=== PATIENT | female | born 1940 | race Caucasian/White ===

== ENCOUNTER → 2016-09-21 | Outpatient (CLI) | payer MEDICARE, BC ==
[~2016-09-21] MED LIST: ALPR0.5T99 PO; DILA4TAB10 PO
[2016-09-21 13:17] LABS: HEMATOCRIT 35.9 % (35.0-46.0); MEAN CELL VOLUME 90.4 FL (80.0-100.0); MEAN CORPUSCULAR HGB CONC 33.2 % (32.0-36.0); PLATELET COUNT 287 TH/MM3 (150-450); RED BLOOD COUNT 3.97 MIL/MM3 (4.00-5.30); RED CELL DISTRIBUTION WIDTH 14.6 % (11.6-17.2); REVIEW FLAG FINAL; WHITE BLOOD COUNT 5.7 TH/MM3 (4.0-11.0)
[2016-09-21 13:52] LABS: ANION GAP 6 MEQ/L (5-15); AST (GOT) 20 U/L (15-37); BICARBONATE 26.1 MEQ/L (21.0-32.0); BLOOD UREA NITROGEN 21 MG/DL (7-18); CHLORIDE 110 MEQ/L (98-107); GLOMERULAR FILTRATION RATE 58 ML/MIN (>89); POTASSIUM 4.6 MEQ/L (3.5-5.1); SODIUM (NA) 142 MEQ/L (136-145)
[2016-09-21 14:10] LABS: ALKALINE PHOSPHATASE 89 U/L (45-117); ALT (GPT) 20 U/L (10-53); FREE T4 1.12 NG/DL (0.76-1.46); GLUCOSE,FASTING 80 MG/DL (74-99); HDL CHOLESTEROL 67.4 MG/DL (40.0-60.0); LDL CHOLESTEROL 119 MG/DL (0-99); LDL CHOLESTEROL DIRECT 116 MG/DL (0-99); TOTAL BILIRUBIN ADULT 0.3 MG/DL (0.2-1.0)
== END ==
LOC: PLAB 08:30
PROVIDERS: ATTEND Internal Medicine
DX: I10 Essential (primary) hypertension (principal); E03.9 Hypothyroidism, unspecified; E78.5 Hyperlipidemia, unspecified
CPT/HCPCS: 36415; 80053; 80061; 83721; 84439; 84443; 85027

== ENCOUNTER → 2017-03-07 | Outpatient (CLI) | payer MEDICARE, BC ==
[2017-03-07 13:32] LABS: ANION GAP 8 MEQ/L (5-15); AST (GOT) 18 U/L (15-37); BICARBONATE 23.7 MEQ/L (21.0-32.0); BLOOD UREA NITROGEN 19 MG/DL (7-18); CHLORIDE 107 MEQ/L (98-107); GLOMERULAR FILTRATION RATE 65 ML/MIN (>89); GLUCOSE,FASTING 88 MG/DL (74-99); POTASSIUM 4.1 MEQ/L (3.5-5.1); SODIUM (NA) 139 MEQ/L (136-145)
[2017-03-07 13:33] LABS: HEMATOCRIT 35.1 % (35.0-46.0); MEAN CELL VOLUME 91.9 FL (80.0-100.0); MEAN CORPUSCULAR HEMOGLOBIN 29.8 PG (27.0-34.0); MEAN CORPUSCULAR HGB CONC 32.4 % (32.0-36.0); PLATELET COUNT 277 TH/MM3 (150-450); RED BLOOD COUNT 3.82 MIL/MM3 (4.00-5.30); RED CELL DISTRIBUTION WIDTH 14.5 % (11.6-17.2); REVIEW FLAG FINAL; WHITE BLOOD COUNT 6.2 TH/MM3 (4.0-11.0)
[2017-03-07 13:37] LABS: ALKALINE PHOSPHATASE 88 U/L (45-117); ALT (GPT) 15 U/L (10-53); HDL CHOLESTEROL 64.6 MG/DL (40.0-60.0); LDL CHOLESTEROL 124 MG/DL (0-99); LDL CHOLESTEROL DIRECT 123 MG/DL (0-99); TOTAL BILIRUBIN ADULT 0.4 MG/DL (0.2-1.0)
== END ==
LOC: PLAB 09:35
PROVIDERS: ATTEND Internal Medicine
DX: I10 Essential (primary) hypertension (principal); E78.5 Hyperlipidemia, unspecified
CPT/HCPCS: 36415; 80053; 80061; 83721; 85027

== ENCOUNTER → 2017-09-13 | Outpatient (CLI) | payer MEDICARE, BC ==
[2017-09-13 13:54] LABS: HEMATOCRIT 33.8 % (35.0-46.0); HEMOGLOBIN 11.1 GM/DL (11.6-15.3); MEAN CELL VOLUME 91.3 FL (80.0-100.0); MEAN CORPUSCULAR HGB CONC 32.9 % (32.0-36.0); MEAN PLATELET VOLUME 7.7 FL (7.0-11.0); PLATELET COUNT 263 TH/MM3 (150-450); RED CELL DISTRIBUTION WIDTH 14.6 % (11.6-17.2); WHITE BLOOD COUNT 5.8 TH/MM3 (4.0-11.0)
[2017-09-13 13:56] LABS: ALBUMIN 3.6 GM/DL (3.4-5.0); AST (GOT) 24 U/L (15-37); BICARBONATE 25.3 MEQ/L (21.0-32.0); BLOOD UREA NITROGEN 21 MG/DL (7-18); CALCIUM 9.4 MG/DL (8.5-10.1); CHLORIDE 106 MEQ/L (98-107); CHOLESTEROL 203 MG/DL (120-200); CREATININE 0.99 MG/DL (0.50-1.00); GLOMERULAR FILTRATION RATE 54 ML/MIN (>89); GLUCOSE,FASTING 79 MG/DL (74-99); SODIUM (NA) 139 MEQ/L (136-145); TRIGLYCERIDES 88 MG/DL (42-150)
[2017-09-13 13:59] LABS: ALKALINE PHOSPHATASE 90 U/L (45-117); ALT (GPT) 22 U/L (10-53); CHOLESTEROL/ HDL RATIO 3.08 RATIO; HDL CHOLESTEROL 65.9 MG/DL (40.0-60.0); LDL CHOLESTEROL 120 MG/DL (0-99); LDL CHOLESTEROL DIRECT 111 MG/DL (0-99); TOTAL BILIRUBIN ADULT 0.4 MG/DL (0.2-1.0)
== END ==
LOC: PLAB 09:30
PROVIDERS: ATTEND Internal Medicine
DX: I10 Essential (primary) hypertension (principal)
CPT/HCPCS: 36415; 80053; 80061; 83721; 85027

== ENCOUNTER 2018-02-09 00:57 | Observation (INO) ==
[2018-02-09 01:37] LABS: Baso % (Auto) 0.3 % (0.0-2.0); Eos % (Auto) 0.5 % (0.0-4.0); Hematocrit 35.2 % (35.0-46.0); Hemoglobin 11.9 gm/dL (11.6-15.3); Lymph # (Auto) 2.2 th/mm3 (1.0-4.8); Lymph % (Auto) 28.8 % (9.0-44.0); Mean Corpuscular HGB Conc 33.7 % (32.0-36.0); Mean Corpuscular Hemoglobin 30.2 pg (27.0-34.0); Mean Corpuscular Volume 89.7 fL (80.0-100.0); Mean Platelet Volume 7.7 fL (7.0-11.0); Mono # (Auto) 0.3 th/mm3 (0.0-0.9); Mono % (Auto) 3.8 % (0.0-8.0); Neut # (Auto) 5.1 th/mm3 (1.8-7.7); Neut % (Auto) 66.6 % (16.0-70.0); Platelet Count 311 th/mm3 (150-450); Red Blood Count 3.93 mil/mm3 (4.00-5.30); White Blood Count 7.6 th/mm3 (4.0-11.0)
--- NOTE | 2018-02-09 01:39 | ED ---
HPI General Chief Complaint: Arrhythmia / Palpitations Stated Complaint: Heart palpitations/dizzy Time Seen by Provider: 02/09/18 01:21 Source: patient Mode of arrival: ambulatory Limitations: no limitations History of Present Illness HPI narrative: 77-year-old female presents to the emergency department by private transportation the care of her friend for evaluation of heart racing and hearing her pulse in her ears. Patient states she has had associated dizziness. Patient states she has been having episodes of intermittent heart racing and skipped beats for the past 6 months. Patient states she has been seen by her primary care provider who is reassured her that her lab work is normal and that her heart sounds are normal as well. Patient states that she does not have any chronic medical conditions and takes no prescription medications reportedly. Patient denies history of heart disease hypertension high cholesterol diabetes tobaccoism and no prior history of arrhythmia. Patient had no recent long distance travel protracted bedrest. Patient states since 4 PM she felt like her heart is racing and pounding in her ear she is checked her blood pressure and is very high and patient denies history of hypertension. Patient thinks she has some anxiety. Patient denies any headache visual disturbance confusion difficulty with speech or swallowing balance disturbance upper or lower extremity numbness tingling or weakness or ataxia of gait. Patient states however that she does feel dizzy whether she is sitting up or lying down and that the dizziness has not improved and the pounding in her ears has persisted as well. Patient denies any chest pain or shortness of breath but has had episodes of feeling diaphoretic or chilled after episodes of diarrhea. Patient's had no neck jaw back shoulder arm pain. No reported dietary indiscretion well water ingestion or foreign travel. Patient denies any recent long distance travel. Patient denies known thyroid dysfunction. Patient's had no fever. Patient has multiple medication allergies. Patient states that she thought perhaps her blood sugar was getting too low so she ate peanut butter and jelly sandwich without symptomatic relief. Patient states she felt shakiness all over. Patient has had no injury or fall near syncope or syncope. complaint: Reports "heart racing", "skipped beats" and palpitations Onset (ago): hour(s) Time: 16:00 Duration: constant Severity: moderate Context: Reports occurred during rest Arrhythmia history: Denies atrial fibrillation, SVT, on anti-coagulants, pacemaker, AICD, history of ablation and history of electrical cardioversion Associated symptoms: Reports anxiety, diaphoresis and muscle cramps; Denies chest pain, shortness of breath, syncope, near-syncope, nausea, vomiting, cough , paresthesias and feeling of impending doom Treatments prior to arrival: Denies vagal maneuvers, propafenone, beta-krystyna, calcium channel krystyna, adenosine, amiodarone and cardioversion Related Data Home Medications Medication Instructions Recorded Confirmed tramadol 50 mg PO Q6H PRN 02/09/18 02/09/18 Allergies Allergy/AdvReac Type Severity Reaction Status Date / Time acetaminophen Allergy Severe RASH/HIVES Verified 02/09/18 01:09 cyclobenzaprine Allergy Severe HYPER Verified 02/09/18 01:09 SENSITIVE diatrizoate meglumine Allergy Severe Anaphylaxis Verified 02/09/18 01:09 diphenhydramine Allergy Severe HYPER Verified 02/09/18 01:09 gadobenic acid Allergy Severe Anaphylaxis Verified 02/09/18 01:09 gadodiamide Allergy Severe Anaphylaxis Verified 02/09/18 01:09 gadoteridol Allergy Severe Anaphylaxis Verified 02/09/18 01:09 hydromorphone Allergy Severe IV ONLY Verified 02/09/18 01:09 TACHY AND VOMITING iodixanol Allergy Severe Anaphylaxis Verified 02/09/18 01:09 iohexol Allergy Severe Anaphylaxis Verified 02/09/18 01:09 metoclopramide Allergy Severe HIVES Verified 02/09/18 01:09 morphine Allergy Severe PASSES OUT Verified 02/09/18 01:09 AND RASH naproxen Allergy Severe ABD PAIN Verified 02/09/18 01:09 oxycodone Allergy Severe RASH/HIVES Verified 02/09/18 01:09 penicillin G Allergy Severe RASH AND Verified 02/09/18 01:09 SWELLING promethazine Allergy Severe VOMITING Verified 02/09/18 01:09 clarithromycin Allergy Intermediate RASH Verified 02/09/18 01:09 codeine Allergy Intermediate RASH Verified 02/09/18 01:09 lorazepam Allergy Intermediate RASH Verified 02/09/18 01:09 Sulfa (Sulfonamide Allergy Intermediate ITCH Verified 02/09/18 01:09 Antibiotics) -CILLINS Allergy Severe SWELL Uncoded 09/28/07 18:37 HYCLOSAMINE Allergy Severe RASH Uncoded 09/28/07 18:37 LIBRAX Allergy Severe RASH Uncoded 09/28/07 18:37 SYMAX Allergy Severe ITCH AND Uncoded 09/28/07 18:37 ABD SWELLING TRECLACYCLINE Allergy Severe SWELLS Uncoded 09/28/07 18:37 Review of Systems ROS: all other systems reviewed are negative PMFSH Medical History Medical History Back pain (Acute) Hx of hysterectomy (Acute) Hx of unilateral nephrectomy (Acute) Surgical History Surgical History History of bladder surgery (Acute) Social History Social History Substance History: No History of Abuse Smoking Status: Never smoker How Often Do You Have a Drink Containing Alcohol: Never Recent Travel in [facility] within the Last 8 Weeks: No Recent Out of Country Travel within the Last 8 Weeks: No Immunization History Tetanus Immunization: Unsure Exam Narrative Exam Narrative: GENERAL: Well-nourished, well-developed patient. SKIN: Focused skin assessment warm/dry. HEAD: Normocephalic. EYES: No scleral icterus. No injection or drainage. NECK: Supple, trachea midline. No JVD or lymphadenopathy. CARDIOVASCULAR: Regular rate and rhythm without murmurs, gallops, or rubs. RESPIRATORY: Breath sounds equal bilaterally. No accessory muscle use. GASTROINTESTINAL: Abdomen soft, non-tender, nondistended. MUSCULOSKELETAL: No cyanosis, or edema. BACK: Nontender without obvious deformity. No CVA tenderness. Course Initial Documented Vital Signs Temperature 97.7 F 02/09/18 01:03 Pulse Rate 106 H 02/09/18 01:03 Respiratory Rate 18 02/09/18 01:03 Blood Pressure 187/81 H 02/09/18 01:03 Pulse Oximetry 98 02/09/18 01:03 Last Documented Vital Signs Temperature 97.7 F 02/09/18 01:03 Pulse Rate 93 H 02/09/18 02:08 Respiratory Rate 20 02/09/18 02:08 Blood Pressure 177/71 H 02/09/18 02:08 Pulse Oximetry 98 02/09/18 02:08 Medical Decision Making MDM Narrative Medical Screen Exam Complete: Yes Emergency Medical Condition: Yes Differential Diagnosis Differential Diagnosis: Palpitations, atypical chest pain, ACS, IA, arrhythmia, electrolyte disturbance, thyroid dysfunction, anemia, uncontrolled blood pressure, dizziness, TIA Medical Records Medical records reviewed: Yes I reviewed the patient's medical records. Lab Data Result diagrams: 02/09/18 01:30 02/09/18 01:30 Lab Results 02/09/18 02/09/18 02/09/18 Range/Units 01:30 01:30 01:30 CBC w Diff Auto diff final WBC 7.6 (4.0-11.0) th/mm3 RBC 3.93 L (4.00-5.30) mil/mm3 Hgb 11.9 (11.6-15.3) gm/dL Hct 35.2 (35.0-46.0) % MCV 89.7 (80.0-100.0) fL MCH 30.2 (27.0-34.0) pg MCHC 33.7 (32.0-36.0) % RDW 14.0 (11.6-17.2) % Plt Count 311 (150-450) th/mm3 MPV 7.7 (7.0-11.0) fL Neut % (Auto) 66.6 (16.0-70.0) % Lymph % (Auto) 28.8 (9.0-44.0) % [place] % (Auto) 3.8 (0.0-8.0) % Eos % (Auto) 0.5 (0.0-4.0) % Baso % (Auto) 0.3 (0.0-2.0) % Neut # (Auto) 5.1 (1.8-7.7) th/mm3 Lymph # (Auto) 2.2 (1.0-4.8) th/mm3 [place] # (Auto) 0.3 (0.0-0.9) th/mm3 Eos # (Auto) 0.0 (0.0-0.4) th/mm3 Baso # (Auto) 0.0 (0.0-0.2) th/mm3 WBC Differential . Differential Comment . PT 9.8 (9.8-11.6) sec INR 1.0 Ratio APTT 29.2 (23.4-31.7) sec Sodium 139 (136-145) meq/L Potassium 4.2 (3.5-5.1) meq/L Chloride 108 H (98-107) meq/L Carbon Dioxide 20.9 L (21.0-32.0) meq/L Anion Gap 10 (5-15) meq/L BUN 26 H (7-18) mg/dL Creatinine 1.10 H (0.50-1.00) mg/dL Estimated GFR 48 L (>89) mL/min Random Glucose 120 H (74-106) mg/dL Calcium 9.2 (8.5-10.1) mg/dL Magnesium 1.9 (1.5-2.5) mg/dL Total Bilirubin 0.3 (0.2-1.0) mg/dL AST 28 (15-37) U/L ALT 23 (10-53) U/L Alkaline Phosphatase 99 (45-117) U/L Total Creatine Kinase 128 (26-192) U/L Total Protein 8.5 H (6.4-8.2) g/dL Albumin 3.8 (3.4-5.0) g/dL Urine Color (Yellw/Straw) Urine Clarity (Clear) Urine pH (5.0-8.5) Ur Specific [place] (1.002-1.035) Urine Protein (Neg-Trace) mg/dL Urine Glucose (UA) (Negative) mg/dL Urine Ketones (Negative) mg/dL Urine Occult Blood (Negative) Urine Nitrate (Negative) Urine Bilirubin (Negative) Urine Urobilinogen (Less than 2) mg/dL Ur Leukocyte Esterase (Negative) Urine WBC (0-5) /hpf Ur Squamous Epith Cells (0-5) /hpf Micro UA Comment Ur Microscopic Review Urine Culture Comments 02/09/18 Range/Units 02:00 CBC w Diff WBC (4.0-11.0) th/mm3 RBC (4.00-5.30) mil/mm3 Hgb (11.6-15.3) gm/dL Hct (35.0-46.0) % MCV (80.0-100.0) fL MCH (27.0-34.0) pg MCHC (32.0-36.0) % RDW (11.6-17.2) % Plt Count (150-450) th/mm3 MPV (7.0-11.0) fL Neut % (Auto) (16.0-70.0) % Lymph % (Auto) (9.0-44.0) % [place] % (Auto) (0.0-8.0) % Eos % (Auto) (0.0-4.0) % Baso % (Auto) (0.0-2.0) % Neut # (Auto) (1.8-7.7) th/mm3 Lymph # (Auto) (1.0-4.8) th/mm3 [place] # (Auto) (0.0-0.9) th/mm3 Eos # (Auto) (0.0-0.4) th/mm3 Baso # (Auto) (0.0-0.2) th/mm3 WBC Differential Differential Comment PT (9.8-11.6) sec INR Ratio APTT (23.4-31.7) sec Sodium (136-145) meq/L Potassium (3.5-5.1) meq/L Chloride (98-107) meq/L Carbon Dioxide (21.0-32.0) meq/L Anion Gap (5-15) meq/L BUN (7-18) mg/dL Creatinine (0.50-1.00) mg/dL Estimated GFR (>89) mL/min Random Glucose (74-106) mg/dL Calcium (8.5-10.1) mg/dL Magnesium (1.5-2.5) mg/dL Total Bilirubin (0.2-1.0) mg/dL AST (15-37) U/L ALT (10-53) U/L Alkaline Phosphatase (45-117) U/L Total Creatine Kinase (26-192) U/L Total Protein (6.4-8.2) g/dL Albumin (3.4-5.0) g/dL Urine Color Yellow (Yellw/Straw) Urine Clarity Clear (Clear) Urine pH 5.5 (5.0-8.5) Ur Specific [place] Less/equal 1.005 (1.002-1.035) Urine Protein Negative (Neg-Trace) mg/dL Urine Glucose (UA) Negative (Negative) mg/dL Urine Ketones Negative (Negative) mg/dL Urine Occult Blood Negative (Negative) Urine Nitrate Negative (Negative) Urine Bilirubin Negative (Negative) Urine Urobilinogen 0.2 (Less than 2) mg/dL Ur Leukocyte Esterase Negative (Negative) Urine WBC 0-5 (0-5) /hpf Ur Squamous Epith Cells 0-5 (0-5) /hpf Micro UA Comment Culture not ind Ur Microscopic Review Microscopic reviewed Urine Culture Comments Culture not ind Imaging Data Radiologist's impression: Chest X-Ray 02/09/18 01:21 CONCLUSION: Cardiomegaly. No acute pulmonary disease. Discharge Plan Physicians Team ED Provider: Lo Connell Primary Care Provider: Primary Care Physici,Esther Rxs /Orders / Referrals /Forms Prescriptions: No Action tramadol 50 mg Tablet 50 mg PO Q6H PRN (Reason: Pain) RF: 0 Status ED Status: With Doctor
--- NOTE | 2018-02-09 02:10 | XR ---
EXAM DATE: 02/09/2018 1:45 AM EDT AGE/SEX: 77 years / Female INDICATIONS: Chest palpitations today. CLINICAL DATA: This is the patient's initial encounter. Patient reports that signs and symptoms have been present for 1 day and indicates a pain score of 0/10. MEDICAL/SURGICAL HISTORY: None. Hysterectomy. Nephrectomy, right. COMPARISON: No prior exams available for comparison. FINDINGS: The cardiac silhouette is enlarged in transverse diameter. The lungs are free of acute parenchymal op acity. No effusions are identified. The background interstitium is prominent though this is likely ch ronic in nature. There is prominence of the aortic knob is with calcification characteristic of athe rosclerotic vascular disease. CONCLUSION: Cardiomegaly. No acute pulmonary disease. Electronically signed by: Yan Craig MD 02/09/2018 2:09 AM EDT
[2018-02-09 02:15] LABS: Chloride 108 meq/L (98-107); Potassium 4.2 meq/L (3.5-5.1); Sodium 139 meq/L (136-145)
[2018-02-09 02:17] LABS: Bilirubin,Urine Negative (Negative); Clarity,Urine Clear (Clear); Color,Urine Yellow (Yellw/Straw); Glucose,Urine (UA) Negative (Negative); Leukocyte Esterase,Urine Negative (Negative); Nitrite,Urine Negative (Negative); PH,Urine 5.5 (5.0-8.5); Specific Gravity,Urine Less/Equal 1.005 (1.002-1.035); Urobilinogen,Urine 0.2 mg/dL (Less than 2)
[2018-02-09 02:20] LABS: Activated Partial Thrombo Time 29.2 sec (23.4-31.7); Albumin 3.8 g/dL (3.4-5.0); Anion Gap 10 meq/L (5-15); Blood Urea Nitrogen 26 mg/dL (7-18); Calcium 9.2 mg/dL (8.5-10.1); Carbon Dioxide 20.9 meq/L (21.0-32.0); Glucose,Random 120 mg/dL (74-106); Magnesium 1.9 mg/dL (1.5-2.5); Prothrombin Time 9.8 sec (9.8-11.6)
[2018-02-09 02:22] LABS: Squamous Epithelial Cell,Urine 0-5 /hpf (0-5); WBC,Urine 0-5 /hpf (0-5)
[2018-02-09 02:23] LABS: Alanine Aminotransferase 23 U/L (10-53); Aspartate Aminotransferase 28 U/L (15-37)
[2018-02-09 02:24] LABS: Glomerular Filtration Rate 48 mL/min (>89)
[2018-02-09 02:25] LABS: Total Protein 8.5 g/dL (6.4-8.2)
[2018-02-09 02:26] LABS: Alkaline Phosphatase 99 U/L (45-117); Creatine Kinase 128 U/L (26-192)
[2018-02-09 02:39] LABS: Creatine Kinase MB 2.1 ng/mL (0.5-3.6)
[2018-02-09] MEDS ORDERED: Metoprolol Inj 5 MG/5 ML Vial IV.PUSH ONE (03:07)
[2018-02-09 05:44] LABS: Creatine Kinase 134 U/L (26-192)
[2018-02-09 06:25] VITALS: BP 184/72; PULSE 82; RESP 20; TEMP 97.5
[2018-02-09 06:31] VITALS: O2SAT 98
--- NOTE | 2018-02-09 07:44 | P.HP ---
History of Present Illness Primary Care Physician: Brian Alexis MD Chief Complaint: Chest pain History of Present Illness: This is a 77-year-old female patient with a known medical history of nephrectomy who presented to the ED with complaints of palpitations. Patient states that over the past 6 months she has had intermittent episodes of palpitations and feeling like her heart skips a beat. She states that she has already had a right nephrectomy and has been told that her left kidney is 54% function gives her a lot of anxiety. She sees her primary care physician and follows with him closely, she has requested antianxiety medications for these episodes in he has been unwilling to give her any antianxiety medications. He denies any type of chest pain, she states that all of her symptoms are anxiety related. She denies any recent fevers, chills, cough, headache, dumping, nausea , vomiting, diarrhea or dysuria. Upon assessment today patient states that she is feeling much improved and is wanting to go home. She states she follows closely with her knife finisher, Dr. Michaud, she reassures me that she will follow-up with him and obtain a cardiac stress test in the outpatient setting. ACS has been ruled out with serial EKGs and serial troponins. She does live at home alone. Able to perform all ADLs per self. She does admit to a previous stress test over 5 years ago was reportedly unremarkable per patient report. Patient denies any smoking history denies any alcohol use. Denies any significant family medical history. Will discharge patient home to follow-up with PCP and knife finisher for outpatient stress test. - Diagnosis (1) Chest pain (2) Palpitations (3) Anxiety Review of Systems All other systems reviewed negative except as stated in HPI PMFSH - History History Provided By: Patient - Medical History Medical History: Medical History (Last Reviewed 02/09/18 @ 07:55 by Guerda Mustafa) Back pain Hx of hysterectomy Hx of unilateral nephrectomy - Surgical History Surgical History: Surgical History (Last Reviewed 02/09/18 @ 07:55 by Guerda Mustafa) History of bladder surgery - Family History Family History: Family History (Last Updated 02/09/18 @ 07:56 by Guerda Mustafa) Other Family history non-contributory - Social History I have reviewed the patient's Social History: Yes - Tobacco History Second Hand Smoke Exposure: No Tobacco Use In Past 30 Days: No Smoking Status: Former smoker Tobacco Type: Cigarettes - Alcohol History How Often Do You Have a Drink Containing Alcohol: Never - Substance Use History Substance History: No History of Abuse - Travel History Recent Travel in the [place] Within the Last 8 Weeks: No Recent Travel Out of the Country Within the Last 8 Weeks: No - Immunization History Tetanus Immunization: Unsure Medications and Allergies Active Medications: Active Medications Nitroglycerin (Nitrostat Sl) 0.4 mg SL Q5M PRN PRN Reason: CHEST PAIN Ondansetron HCl (Zofran Inj) 4 mg IV.PUSH Q6H PRN PRN Reason: NAUSEA Sodium Chloride (Ns Flush) 2 ml IV.FLUSH UNSCH PRN PRN Reason: FLUSH AFTER USING IV ACCESS Sodium Chloride (Ns Flush) 2 ml IV.FLUSH BID ALY Sodium Chloride (Ns Flush) 2 ml IV.FLUSH PRN PRN PRN Reason: FLUSH AFTER USING IV ACCESS Allergies Allergy/AdvReac Type Severity Reaction Status Date / Time acetaminophen Allergy Severe RASH/HIVES Verified 02/09/18 01:09 cyclobenzaprine Allergy Severe HYPER Verified 02/09/18 01:09 SENSITIVE diatrizoate meglumine Allergy Severe Anaphylaxis Verified 02/09/18 01:09 diphenhydramine Allergy Severe HYPER Verified 02/09/18 01:09 gadobenic acid Allergy Severe Anaphylaxis Verified 02/09/18 01:09 gadodiamide Allergy Severe Anaphylaxis Verified 02/09/18 01:09 gadoteridol Allergy Severe Anaphylaxis Verified 02/09/18 01:09 hydromorphone Allergy Severe IV ONLY Verified 02/09/18 01:09 TACHY AND VOMITING iodixanol Allergy Severe Anaphylaxis Verified 02/09/18 01:09 iohexol Allergy Severe Anaphylaxis Verified 02/09/18 01:09 metoclopramide Allergy Severe HIVES Verified 02/09/18 01:09 morphine Allergy Severe PASSES OUT Verified 02/09/18 01:09 AND RASH naproxen Allergy Severe ABD PAIN Verified 02/09/18 01:09 oxycodone Allergy Severe RASH/HIVES Verified 02/09/18 01:09 penicillin G Allergy Severe RASH AND Verified 02/09/18 01:09 SWELLING promethazine Allergy Severe VOMITING Verified 02/09/18 01:09 clarithromycin Allergy Intermediate RASH Verified 02/09/18 01:09 codeine Allergy Intermediate RASH Verified 02/09/18 01:09 lorazepam Allergy Intermediate RASH Verified 02/09/18 01:09 Sulfa (Sulfonamide Allergy Intermediate ITCH Verified 02/09/18 01:09 Antibiotics) -CILLINS Allergy Severe SWELL Uncoded 09/28/07 18:37 HYCLOSAMINE Allergy Severe RASH Uncoded 09/28/07 18:37 LIBRAX Allergy Severe RASH Uncoded 09/28/07 18:37 SYMAX Allergy Severe ITCH AND Uncoded 09/28/07 18:37 ABD SWELLING TRECLACYCLINE Allergy Severe SWELLS Uncoded 09/28/07 18:37 Home Medications Medication Instructions Recorded Confirmed Type tramadol 50 mg PO Q6H PRN 02/09/18 02/09/18 History Exam Vital signs: Vital Signs 02/09/18 01:03 02/09/18 01:26 02/09/18 01:29 Temperature 97.7 F Pulse Rate 106 H 107 H Respiratory Rate 18 20 Blood Pressure 187/81 H 189/65 H 183/72 H Pulse Oximetry 98 9 L 02/09/18 02:08 02/09/18 02:35 02/09/18 03:00 Temperature Pulse Rate 93 H 98 H Respiratory Rate 20 20 20 Blood Pressure 177/71 H 165/72 H Pulse Oximetry 98 98 02/09/18 03:26 02/09/18 03:28 02/09/18 03:40 Temperature Pulse Rate 93 H 79 Respiratory Rate 20 18 Blood Pressure 161/57 H 157/84 H Pulse Oximetry 98 02/09/18 04:15 02/09/18 04:30 02/09/18 05:11 Temperature 97.5 F L Pulse Rate 73 82 Respiratory Rate 20 Blood Pressure 184/72 H Pulse Oximetry 99 98 Intake & Output 02/08/18 02/09/18 02/09/18 18:59 06:59 18:59 Weight 54.5 kg Narrative: GENERAL: Well-developed, well-nourished patient in NAD. SKIN: Warm and dry. No rash. HEAD: Normocephalic. Atraumatic. EYES: Pupils equal and round. No scleral icterus. No injection or drainage. ENT: No nasal bleeding or discharge. Mucous membranes pink and moist. NECK: Supple. Trachea midline. CARDIOVASCULAR: Regular rate and rhythm. S1, S2 noted. No murmur appreciated. No chest pain to palpation. RESPIRATORY: No accessory muscle use. Clear to auscultation. Breath sounds equal bilaterally. GASTROINTESTINAL: Abdomen soft, non-tender, nondistended. Normoactive bowel sounds x4. MUSCULOSKELETAL: No obvious deformities. Extremities without clubbing, cyanosis , or edema. NEUROLOGICAL: Awake and alert. No obvious cranial nerve deficits. Motor grossly within normal limits. 5/5 muscle strength in bilateral upper and lower extremities. Normal speech. PSYCHIATRIC: Appropriate mood and affect; insight and judgment normal. Results - Labs CBC & Chem 7: 02/09/18 01:30 02/09/18 01:30 Labs: Laboratory Results - last 24 hr 02/09/18 02/09/18 02/09/18 01:30 01:30 01:30 CBC w Diff Auto diff final WBC 7.6 RBC 3.93 L Hgb 11.9 Hct 35.2 MCV 89.7 MCH 30.2 MCHC 33.7 RDW 14.0 Plt Count 311 MPV 7.7 Neut % (Auto) 66.6 Lymph % (Auto) 28.8 [place] % (Auto) 3.8 Eos % (Auto) 0.5 Baso % (Auto) 0.3 Neut # (Auto) 5.1 Lymph # (Auto) 2.2 [place] # (Auto) 0.3 Eos # (Auto) 0.0 Baso # (Auto) 0.0 WBC Differential . Differential Comment . PT 9.8 INR 1.0 APTT 29.2 Sodium 139 Potassium 4.2 Chloride 108 H Carbon Dioxide 20.9 L Anion Gap 10 BUN 26 H Creatinine 1.10 H Estimated GFR 48 L Random Glucose 120 H Calcium 9.2 Magnesium 1.9 Total Bilirubin 0.3 AST 28 ALT 23 Alkaline Phosphatase 99 Total Creatine Kinase 128 CK-MB (CK-2) 2.1 Troponin I Less than 0.02 L B-Natriuretic Peptide Total Protein 8.5 H Albumin 3.8 TSH 1.390 Urine Color Urine Clarity Urine pH Ur Specific [place] Urine Protein Urine Glucose (UA) Urine Ketones Urine Occult Blood Urine Nitrate Urine Bilirubin Urine Urobilinogen Ur Leukocyte Esterase Urine WBC Ur Squamous Epith Cells Micro UA Comment Ur Microscopic Review Urine Culture Comments 02/09/18 02/09/18 02/09/18 01:30 02:00 04:50 CBC w Diff WBC RBC Hgb Hct MCV MCH MCHC RDW Plt Count MPV Neut % (Auto) Lymph % (Auto) [place] % (Auto) Eos % (Auto) Baso % (Auto) Neut # (Auto) Lymph # (Auto) [place] # (Auto) Eos # (Auto) Baso # (Auto) WBC Differential Differential Comment PT INR APTT Sodium Potassium Chloride Carbon Dioxide Anion Gap BUN Creatinine Estimated GFR Random Glucose Calcium Magnesium Total Bilirubin AST ALT Alkaline Phosphatase Total Creatine Kinase 134 CK-MB (CK-2) Troponin I Less than 0.02 L B-Natriuretic Peptide 67 Total Protein Albumin TSH Urine Color Yellow Urine Clarity Clear Urine pH 5.5 Ur Specific [place] Less/equal 1.005 Urine Protein Negative Urine Glucose (UA) Negative Urine Ketones Negative Urine Occult Blood Negative Urine Nitrate Negative Urine Bilirubin Negative Urine Urobilinogen 0.2 Ur Leukocyte Esterase Negative Urine WBC 0-5 Ur Squamous Epith Cells 0-5 Micro UA Comment Culture not ind Ur Microscopic Review Microscopic reviewed Urine Culture Comments Culture not ind - Imaging Impressions Chest X-Ray 02/09/18 01:21 CONCLUSION: Cardiomegaly. No acute pulmonary disease. Caprini VTE Risk Assessment Caprini VTE Risk Assessment: Moderate/High Risk (score >= 2) Caprini Risk Assessment Model: Point Value = 1 Point Value = 2 Point Value = 3 Point Value = 5 Age 41-60 Minor surgery BMI > 25 kg/m2 Swollen legs Varicose veins or History of unexplained or recurrent spontaneous Oral contraceptives or hormone replacement Sepsis (< 1 month) Serious lung disease, including pneumonia (< 1 month) Abnormal pulmonary function Acute myocardial infarction Congestive heart failure (< 1 month) History of inflammatory bowel disease Medical patient at bed rest Age 61-74 Arthroscopic surgery Major open surgery (> 45 min) Laparoscopic surgery (> 45 min) Malignancy Confined to bed (> 72 hours) Immobilizing plaster cast Central venous access Age >= 75 History of VTE Family history of VTE Factor V Leiden Prothrombin [id number] Lupus anticoagulant Anticardiolipin antibodies Elevated serum homocysteine Heparin-induced thrombocytopenia Other congenital or acquired thrombophilia Stroke (< 1 month) Elective arthroplasty Hip, pelvis, or leg fracture Acute spinal cord injury (< 1 month) Prophylaxis Regimen: Total Risk Factor Score Risk Level Prophylaxis Regimen 0-1 Low Early ambulation 2 Moderate Order ONE of the following: *Sequential Compression Device (SCD) *Heparin 5000 units SQ BID 3-4 Higher Order ONE of the following medications: *Heparin 5000 units SQ TID *Enoxaparin/Lovenox 40 mg SQ daily (WT < 150 kg, CrCl > 30 mL/min) *Enoxaparin/Lovenox 30 mg SQ daily (WT < 150 kg, CrCl > 10-29 mL/min) *Enoxaparin/Lovenox 30 mg SQ BID (WT < 150 kg, CrCl > 30 mL/min) AND/OR *Sequential Compression Device (SCD) 5 or more Highest Order ONE of the following medications: *Heparin 5000 units SQ TID (Preferred with Epidurals) *Enoxaparin/Lovenox 40 mg SQ daily (WT < 150 kg, CrCl > 30 mL/min) *Enoxaparin/Lovenox 30 mg SQ daily (WT < 150 kg, CrCl > 10-29 mL/min) *Enoxaparin/Lovenox 30 mg SQ BID (WT < 150 kg, CrCl > 30 mL/min) AND *Sequential Compression Device (SCD) Assessment and Plan - Assessment (1) Chest pain Code(s): R07.9 - Chest pain, unspecified Status: Acute (2) Palpitations Code(s): R00.2 - Palpitations Status: Acute (3) Anxiety Code(s): F41.9 - Anxiety disorder, unspecified Status: Acute - Plan This is a 77-year-old female patient with: Palpitations Anxiety Patient has been admitted to the chest pain center for observation. Serial EKGs and serial troponins were ordered for ruling out ACS purposes. Serial troponins flat. EKG reviewed showing no ST changes to indicate any ischemia, controlled heart rate. Continued on cardiac telemetry overnight, no arrhythmias noted. Chest x-ray reviewed showing no acute cardiopulmonary disease. CBC and BMP reviewed, essentially unremarkable. All symptoms have resolved, patient relates she follows closely with her PCP and knife finisher. Will discharge home to follow-up with patient reassures me that she will follow- up with Dr. Michaud and obtain a stress test to further rule out any ischemia. Patient denies ever having any chest pain. Patient is stable at this time and agreeable to the plan. Follow-up PCP. Heart healthy diet. Activity as tolerated. RX as ordered.
[2018-02-09 08:27] LABS: Creatine Kinase 114 U/L (26-192)
--- NOTE | 2018-02-09 19:58 | ECG ---
Date Performed: 02/09/2018 Time Performed: 01:27:32 PTAGE: 77 years EKG: SINUS TACHYCARDIA MARKED LEFT AXIS DEVIATION LEFT VENTRICULAR HYPERTROPHY AND ST-T CHANGE A BNORMAL ECG PREVIOUS TRACING : 09/28/2007 19.37 Compared to previous tracing, the left ventricular hypertro phy and left axis deviation are new. DOCTOR: Miguel Ángel Hayes Interpretating Date/Time 02/09/2018 19:57:06
--- NOTE | 2018-02-09 19:59 | ECG ---
Date Performed: 02/09/2018 Time Performed: 05:02:30 PTAGE: 77 years EKG: Sinus rhythm MARKED LEFT AXIS DEVIATION MODERATE INTRAVENTRICULAR CONDUCTION DELAY VOLTAGE CRITERIA FOR LVH ABNOR MAL ECG PREVIOUS TRACING : 02/09/2018 01.27 Compared to previous tracing, the ST changes have resolved DOCTOR: Miguel Ángel Hayes Interpretating Date/Time 02/09/2018 19:57:26
== END 2018-02-09 08:30 | disposition home or self-care (01) ==
LOC: PHED 00:57 → PHEDA 00:57 → PH3 04:15
PROVIDERS: ADMIT Internal Medicine; ATTEND Internal Medicine